=== PATIENT | male | born 1940 | race African-American/Black ===

== ENCOUNTER 2017-03-13 12:26 | Day surgery (SDC) | payer OTHER ==
[~2017-03-13] VITALS: Ht 167.6 cm; Wt 55.3 kg
[~2017-03-13 12:26] MED LIST: ACID REDUCER20 MG PO; APRESOLINE50 MG PO; CARDURA4 MG PO; ELIPHOS667 MG PO; LOPRESSOR100 M1 PO; PROCARDIA XL30 MG PO
[2017-03-13 12:55] VITALS: BP 130/75
[2017-03-13 13:06] LABS: HEMATOCRIT 33.6 % (38.0-50.0); MCH 29.4 PG (29.0-34.0); MCHC 31.5 G/DL (30.0-36.0); MCV 93.1 FL (86-99); MEAN PLAT.VOLUME 10.8 uM^3 (9.0-12.4); PLATELET COUNT 215 K/uL (156-360); RBC DIS.WIDTH-CV 16.3 % (11.8-14.6); RBC DIS.WIDTH-SD 55.9 % (39-53); RED BLOOD COUNT 3.61 M/uL (4.00-5.50); WHITE BLOOD COUNT 6.9 K/uL (4.1-10.2)
[2017-03-13 13:32] LABS: ANION GAP 12 MEQ/L (2-14); CHLORIDE 98 MEQ/L (99-109); GFR ESTIMATE (CALCULATED) 13 mL/min/ (58.99-99999); GLUCOSE 100 mg/dL (70-99); POTASSIUM 4.6 MEQ/L (3.7-5.4); SAMPLE HEMOLYSIS CHECK 0; SAMPLE ICTERIC CHECK 0; SAMPLE LIPEMIA CHECK 0; SODIUM 137 MEQ/L (136-147); UREA NITROGEN (BUN) 20 mg/dL (9-23)
[2017-03-13 15:15] VITALS: BP 158/70
[2017-03-13 16:08] VITALS: BP 129/67
== END 2017-03-13 16:21 | disposition home or self-care (01) ==
LOC: SDC 12:26
PROVIDERS: Surgery
DX: I12.0 Hypertensive chronic kidney disease with stage 5 chronic kidney disease or end stage renal disease (principal); N18.6 End stage renal disease; Z99.2 Dependence on renal dialysis
CPT/HCPCS: 80048; 85027; 93005; J0690; J1644; J2720; J3010

== ENCOUNTER 2017-04-17 10:13 | Day surgery (SDC) | payer OTHER | END 2017-04-17 12:41 | disposition home or self-care (01) | LOC: CATH 10:13 | DX: T82.858A Stenosis of other vascular prosthetic devices, implants and grafts, initial encounter (principal); N18.6 End stage renal disease; Z99.2 Dependence on renal dialysis | CPT/HCPCS: 87641; C1725; C1769; C1894; J1644; J2250; J3010 ==